=== PATIENT | male | born 1995 | race African-American/Black ===

== ENCOUNTER 2020-01-20 18:43 | Emergency (ER) | payer SELFPAY ==
[2020-01-20] MEDS ORDERED: FAMOTIDINE 20 MG/2 ML VIAL IV ONE (19:09)
[2020-01-20] MEDS ORDERED: NA CHLORIDE 0.9% 1,000 ML ONE (19:09)
[2020-01-20] MEDS ORDERED: ONDANSETRON 4 MG/2 ML VIAL ONE (19:09)
[2020-01-20 19:19] LABS: Absolute Lymphocytes (CBC) 3.8 K/uL (0.7-4.9); Basophils % 0.6 % (0-1.3); Hematocrit 39.9 % (39.6-49.0); Lymphocytes % 43.6 % (15.3-44.8); MPV 8.1 fL (7.6-11.3)
[2020-01-20 19:20] LABS: BUN Blood Urea Nitrogen 9 mg/dL (7-18); Bicarbonate 33 mmol/L (21-32); Glucose Level 106 mg/dL (74-106); Potassium 3.3 mmol/L (3.5-5.1); Sodium Level 140 mmol/L (136-145)
[2020-01-20] MEDS ORDERED: MAGNE/ALUM HYDROXD 30 ML UCUP ONE (19:31)
[2020-01-20] MEDS ORDERED: LIDOCAINE VISCOUS 2% SOLN 15 ML UDC ONE (19:31)
[2020-01-20] MEDS ORDERED: GLUCAGON 1 MG/VIAL ONE (19:31)
--- NOTE | 2020-01-20 19:58 | RAD REPORT ---
EXAM DESCRIPTION: RAD - Neck Soft Tissue - 01/20/2020 7:36 pm CLINICAL HISTORY: FORIEGN BODY COMPARISON: None. TECHNIQUE: Single lateral soft tissue neck exam performed. FINDINGS: No prevertebral soft tissue thickening. No foreign body or abnormal air density. Epiglotti s is normal. Adenoid tissue is prominent. No disk or bony abnormality. IMPRESSION: No foreign body identified. No suspicious finding noted.
[2020-01-20] MEDS ORDERED: POTASSIUM 25 MEQ EFFERV TAB ONE (20:20)
--- NOTE | 2020-01-20 20:35 | EDPHYS ---
Physician Documentation [facility] Name: Maninder Copeland Age: 24 yrs Sex: Male : 1995 Arrival Date: 01/20/2020 Time: 18:45 Bed 19 Private MD: ED Physician Dakota Montgomery HPI: 01/19 19:00 This 24 yrs old Black Male presents to ER via EMS with complaints of Swallowed Foreign cp Body. 19:00 The patient or guardian reports the patient has a suspected foreign body, of the cp throat. The reported likely foreign body is piece of meat. Onset: The symptoms/episode began/occurred just prior to arrival. Current symptoms: foreign body sensation, nausea, vomiting. Treatment Prior to Arrival: the patient induced vomiting. Patient reports he was eating a cheeseburger when he started feeling like piece was caught in throat. Patient reports he did vomit and observed piece of meat in vomitus, but he continues to have sensation of foreign body in throat, nausea and difficulty swallowing. Historical: - Allergies: 18:49 Iodine; jl7 18:49 SHELLFISH; jl7 - Home Meds: 18:49 None [Active]; jl7 - PMHx: 18:49 None; jl7 - PSHx: 18:49 None; jl7 - Immunization history:: Adult Immunizations unknown. - Social history:: Smoking status: Patient denies any tobacco usage or history of. ROS: 19:05 Constitutional: Negative for body aches, chills, fever, poor PO intake. cp 19:05 Eyes: Negative for injury, pain, redness, and discharge. cp 19:05 ENT: Positive for difficulty swallowing, foreign body sensation. 19:05 Cardiovascular: Negative for chest pain, palpitations. 19:05 Respiratory: Negative for cough, shortness of breath, wheezing. 19:05 Abdomen/GI: Positive for nausea, vomiting, Negative for abdominal pain, diarrhea, constipation. 19:05 Neuro: Negative for altered mental status, dizziness, loss of consciousness, syncope, weakness. 19:05 All other systems are negative. Exam: 19:10 Constitutional: The patient appears in no acute distress, alert, awake, cp non-diaphoretic, non-toxic, well developed, well nourished. 19:10 Head/Face: Normocephalic, atraumatic. cp 19:10 Eyes: Periorbital structures: appear normal, Conjunctiva: normal, no exudate, no injection, Lids and lashes: appear normal, bilaterally. 19:10 ENT: External ear(s): are unremarkable, Nose: is normal, Mouth: Lips: moist, Oral mucosa: moist, Posterior pharynx: Airway: no evidence of obstruction, patent. 19:10 Neck: ROM/movement: is normal, is supple, without pain, no range of motions limitations. 19:10 Chest/axilla: Inspection: normal, Palpation: is normal, no crepitus, no tenderness. 19:10 Cardiovascular: Rate: tachycardic, Rhythm: regular, JVD: is not appreciated. 19:10 Respiratory: the patient does not display signs of respiratory distress, Respirations: normal, no use of accessory muscles, labored breathing, is not present, Breath sounds: are clear throughout, no decreased breath sounds, no stridor, no wheezing. 19:10 Abdomen/GI: Inspection: abdomen appears normal, Palpation: abdomen is soft and non-tender, in all quadrants. 19:10 Neuro: Orientation: to person, place \T\ time. Mentation: is normal. Vital Signs: 18:35 BP 138 / 77; Pulse 108; Resp 19 S; Temp 98.2(O); Pulse Ox 100% on R/A; Weight 90.72 kg; jl7 Height 5 ft. 10 in. (177.80 cm); Pain 0/10; 20:30 BP 122 / 60; Pulse 89; Resp 18; Pulse Ox 100% on R/A; mg2 18:35 Body Mass Index 28.70 (90.72 kg, 177.80 cm) jl7 MDM: 18:51 Patient medically screened. cp 20:33 Data reviewed: vital signs, nurses notes, lab test result(s), radiologic studies, plain cp films. 20:33 Response to treatment: the patient's symptoms have markedly improved after treatment, cp Patient reports foreign body sensation improved and throat feels more irritated. Patient observed tolerating po fluids. VSS and no signs of respiratory distress observed. Will discharge to home for continued monitoring. 01/19 18:51 Order name: CBC with Diff cp 01/19 18:51 Order name: BMP cp 01/19 18:51 Order name: XRAY Neck Soft Tissue: AP and Lateral; Complete Time: 20:00 cp 01/19 20:12 Interpretation: Report reviewed. 01/19 18:52 Order name: CBC with Automated Diff; Complete Time: 19:48 EDMS 01/19 19:48 Interpretation: Normal except: HGB 13.2; MCV 78.1; MCH 25.9. 01/19 18:52 Order name: Basic Metabolic Panel; Complete Time: 19:48 EDMS 01/19 18:51 Order name: IV; Complete Time: 18:54 cp Administered Medications: 18:45 Drug: Glucagon 1 mg Route: IVP; Site: right antecubital; jl7 19:20 Follow up: Response: No adverse reaction; No change in condition ca1 18:55 Drug: Zofran (Ondansetron) 4 mg Route: IVP; Site: right antecubital; jl7 19:20 Follow up: Response: No adverse reaction; Nausea is decreased ca1 18:55 Drug: NS 0.9% 1000 ml Route: IV; Rate: 1 bolus; Site: right antecubital; jl7 18:58 Drug: Pepcid 20 mg Route: IVP; Site: right antecubital; jl7 19:39 Follow up: Response: No adverse reaction ca1 19:25 Drug: GI Cocktail without - (Maalox Suspension 30 ml, Lidocaine Liquid 2 % 15 ca1 ml) Route: PO; 20:57 Follow up: Response: No adverse reaction mg2 19:27 Drug: Glucagon 1 mg Route: IVP; Site: right antecubital; ca1 20:57 Follow up: Response: No adverse reaction mg2 19:37 Not Given (Duplicate Order): Glucagon 1 mg IVP once ca1 20:14 Drug: Potassium Effervescent Tablet 25 mEq Route: PO; mg2 20:57 Follow up: Response: No adverse reaction mg2 Disposition: 01/20/20 20:34 Discharged to Home. Impression: Other specified symptoms and signs involving the digestive system and abdomen - swallowed foreign body sensation. - Condition is Stable. - Discharge Instructions: Swallowed Foreign Body, Adult. - Prescriptions for Protonix 40 mg Oral Tablet, Delayed Release (E.C.) - take 1 tablet by ORAL route once daily for 8-10 days; 10 tablet. Zofran 4 mg Oral Tablet - take 1 tablet by ORAL route every 12 hours As needed; 20 tablet. - Medication Reconciliation Form, Thank You Letter, Antibiotic Education, Prescription Opioid Use form. - Follow up: Nishant Rivers MD; When: Tomorrow; Reason: Worsening of condition. - Problem is new. - Symptoms have improved. Addendum: 01/24/2020 07:00 Co-signature as Attending Physician, Dakota Montgomery MD. r n Signatures: Dispatcher [employer] EDMS Dakota Montgomery MD MD rn Vito Ge, PA PA cp Meme Duffy RN RN jl7 Phil Neumann RN RN mg2 Lary Maldonado RN RN ca1 Corrections: (The following items were deleted from the chart) 01/19 20:58 20:34 01/20/2020 20:34 Discharged to Home. Impression: Other specified symptoms and mg2 signs involving the digestive system and abdomen - swallowed foreign body sensation. Condition is Stable. Forms are Medication Reconciliation Form, Thank You Letter, Antibiotic Education, Prescription Opioid Use. Follow up: Nishant Rivers; When: Tomorrow; Reason: Worsening of condition. Problem is new. Symptoms have improved. cp 23:43 23:40 This 24 yrs old Black Male presents to ER via EMS with complaints of Swallowed cp Foreign Body. cp
--- NOTE | 2020-01-20 20:35 | ER ---
Nurse's Notes [facility] Name: Maninder Copeland Age: 24 yrs Sex: Male : 1995 Arrival Date: 01/20/2020 Time: 18:45 Bed 19 Private MD: Diagnosis: Other specified symptoms and signs involving the digestive system and abdomen-swallowed foreign body sensation Presentation: 01/19 18:35 Chief complaint: EMS states: Eating a cheeseburger 15 minutes ago and reports food jl7 stuck in his throat. Denies difficulty breathing. Coronavirus screen: Client denies travel out of the [place] in the last 14 days. At this time, the client does not indicate any symptoms associated with coronavirus-19. Ebola Screen: No symptoms or risks identified at this time. Initial Sepsis Screen: Does the patient meet any 2 criteria? No. Patient's initial sepsis screen is negative. Does the patient have a suspected source of infection? No. Patient's initial sepsis screen is negative. Risk Assessment: Do you want to hurt yourself or someone else? Patient reports no desire to harm self or others. Onset of symptoms was January 20, 2020. Care prior to arrival: None. Transition of care: patient was not received from another setting of care. 18:35 Method Of Arrival: EMS: [facility] 18:35 Acuity: GRAZYNA 3 jl7 Triage Assessment: 18:49 General: Appears in no apparent distress. uncomfortable, Behavior is cooperative, jl7 appropriate for age, anxious. Pain: Denies pain. Neuro: Level of Consciousness is awake, alert, obeys commands, Oriented to person, place, time, situation. Cardiovascular: Patient's skin is warm and dry. Respiratory: Airway is patent Respiratory effort is even, unlabored, Respiratory pattern is regular, symmetrical. Derm: Skin is pink, warm \T\ dry. Historical: - Allergies: 18:49 Iodine; jl7 18:49 SHELLFISH; jl7 - Home Meds: 18:49 None [Active]; jl7 - PMHx: 18:49 None; jl7 - PSHx: 18:49 None; jl7 - Immunization history:: Adult Immunizations unknown. - Social history:: Smoking status: Patient denies any tobacco usage or history of. Screenin:49 Abuse screen: Denies threats or abuse. Denies injuries from another. Nutritional jl7 screening: No deficits noted. Tuberculosis screening: No symptoms or risk factors identified. Fall Risk IV access (20 points). Total Contreras Fall Scale indicates No Risk (0-24 pts). Assessment: 18:49 General: See triage . jl7 20:57 Reassessment: Patient appears in no apparent distress at this time. Patient states mg2 feeling better. Patient states symptoms have improved. Vital Signs: 18:35 BP 138 / 77; Pulse 108; Resp 19 S; Temp 98.2(O); Pulse Ox 100% on R/A; Weight 90.72 kg; jl7 Height 5 ft. 10 in. (177.80 cm); Pain 0/10; 20:30 BP 122 / 60; Pulse 89; Resp 18; Pulse Ox 100% on R/A; mg2 18:35 Body Mass Index 28.70 (90.72 kg, 177.80 cm) jl7 ED Course: 18:45 Patient arrived in ED. ca1 18:45 Meme Duffy, LANDON is Primary Nurse. jl7 18:48 Triage completed. jl7 18:49 Vito Ge PA is PHCP. cp 18:49 Dakota Montgomery MD is Attending Physician. cp 18:49 Arm band placed on right wrist. jl7 18:49 Patient has correct armband on for positive identification. Bed in low position. Call [facility] light in reach. Side rails up X 1. Pulse ox on. NIBP on. 18:49 Inserted saline lock: 20 gauge in right antecubital area, using aseptic technique. jl7 Blood collected. 19:01 Initial lab(s) drawn, by az, sent to lab. jl7 19:37 XRAY Neck Soft Tissue: AP and Lateral In Process Unspecified. EDMS 20:30 Nishant Rivers MD is Referral Physician. cp 20:57 No provider procedures requiring assistance completed. IV discontinued, intact, mg2 bleeding controlled, No redness/swelling at site. Pressure dressing applied. Administered Medications: 18:45 Drug: Glucagon 1 mg Route: IVP; Site: right antecubital; jl7 19:20 Follow up: Response: No adverse reaction; No change in condition ca1 18:55 Drug: Zofran (Ondansetron) 4 mg Route: IVP; Site: right antecubital; jl7 19:20 Follow up: Response: No adverse reaction; Nausea is decreased ca1 18:55 Drug: NS 0.9% 1000 ml Route: IV; Rate: 1 bolus; Site: right antecubital; jl7 18:58 Drug: Pepcid 20 mg Route: IVP; Site: right antecubital; jl7 19:39 Follow up: Response: No adverse reaction ca1 19:25 Drug: GI Cocktail without - (Maalox Suspension 30 ml, Lidocaine Liquid 2 % 15 ca1 ml) Route: PO; 20:57 Follow up: Response: No adverse reaction mg2 19:27 Drug: Glucagon 1 mg Route: IVP; Site: right antecubital; ca1 20:57 Follow up: Response: No adverse reaction mg2 19:37 Not Given (Duplicate Order): Glucagon 1 mg IVP once ca1 20:14 Drug: Potassium Effervescent Tablet 25 mEq Route: PO; mg2 20:57 Follow up: Response: No adverse reaction mg2 Outcome: 20:34 Discharge ordered by . ayo 20:57 Discharged to home ambulatory. mg2 20:57 Condition: stable 20:57 Discharge instructions given to patient, Instructed on discharge instructions, follow up and referral plans. medication usage, Demonstrated understanding of instructions, follow-up care, medications, Prescriptions given X 2. 20:58 Patient left the ED. mg2 Signatures: Dispatcher [employer] EDMS Vito Ge PA PA cp Leal, Jahala RN RN jl7 Phil Neumann RN RN mg2 Lary Maldonado RN RN ca1
[2020-01-20 21:37] VITALS: BP 122/60; O2SAT 100
== END 2020-01-20 20:58 | disposition home or self-care (01) ==
LOC: ER 18:43
DX: R19.8 Other specified symptoms and signs involving the digestive system and abdomen (principal); Z91.013 Allergy to seafood; Z91.048 Other nonmedicinal substance allergy status
CPT/HCPCS: 36415; 70360; 80048; 85025; 96374; 96375; 99284; J1610; J2405; J7030

== ENCOUNTER 2022-12-28 06:00 | Emergency (ER) | payer SELFPAY ==
--- OUTSIDE RECORDS SUMMARY | 2022-12-28 06:03 | XMS REPORT | Continuity of Care Document ---
:1995 Author Organization [facility] t Address [address] [place] [address] Care Team Providers Name Role Phone LISSA Attending Clinician Unavailable LISSA Admitting Clinician Unavailable Problems This patient has no known problems. Allergies, Adverse Reactions, Alerts This patient has no known allergies or adverse reactions. Medications This patient has no known medications. Procedures This patient has no known procedures. Encounters Start End Encounter Admission Attending Care Care Encounter Source Date/Time Date/Time Type Type Clinicians Facility Department ID 2021-11-08 2021-11-08 Outpatient [facility] [phone] [place] 00:00:00 00:00:00 [facility] Program Results This patient has no known results.
--- NOTE | 2022-12-28 07:01 | ER ---
Nurse's Notes [facility] Name: Maninder Copeland Age: 27 yrs Sex: Male : 1995 Arrival Date: 12/28/2022 Time: 06:00 Bed 13 Private MD: Diagnosis: Acute pharyngitis, unspecified;Acute tonsillitis, unspecified Presentation: 12/28 06:30 Chief complaint: Patient states: sore throat that started yesterday morning. as6 Coronavirus screen: At this time, the client does not indicate any symptoms associated with coronavirus-19. Ebola Screen: No symptoms or risks identified at this time. Initial Sepsis Screen: Does the patient meet any 2 criteria? No. Patient's initial sepsis screen is negative. Does the patient have a suspected source of infection? No. Patient's initial sepsis screen is negative. Risk Assessment: Do you want to hurt yourself or someone else? Patient reports no desire to harm self or others. Onset of symptoms was December 27, 2022 at 09:00. 06:30 Acuity: GRAZYNA 4 as6 06:30 Method Of Arrival: EMS: [facility] as6 Triage Assessment: 06:28 General: Appears in no apparent distress. Behavior is calm, cooperative. Pain: as6 Complains of pain in throat. EENT: Reports pain when swallowing. Neuro: No deficits noted. Cardiovascular: Denies chest pain, Capillary refill < 3 seconds Patient's skin is warm and dry. Respiratory: Respiratory effort is even, unlabored, Respiratory pattern is regular, symmetrical. GI: No deficits noted. No signs and/or symptoms were reported involving the gastrointestinal system. : No deficits noted. No signs and/or symptoms were reported regarding the genitourinary system. Derm: Skin is intact, is healthy with good turgor. Musculoskeletal: Circulation, motion, and sensation intact. Historical: - Allergies: 06:30 Iodine; as6 06:30 SHELLFISH; as6 - Home Meds: 06:30 None [Active]; as6 - PMHx: 06:30 None; as6 - PSHx: 06:30 None; as6 - Immunization history:: Client reports having NOT received the Covid vaccine. - Social history:: Smoking status: Patient denies any tobacco usage or history of. Screenin:32 [facility] ED Fall Risk Assessment (Adult) Score/Fall Risk Level 0 - 2 = Low Risk. Abuse as6 screen: Denies threats or abuse. Denies injuries from another. Nutritional screening: No deficits noted. Tuberculosis screening: No symptoms or risk factors identified. Assessment: 07:22 Reassessment: Patient and/or family updated on plan of care and expected duration. Pain mb9 level reassessed. Patient is alert, oriented x 3, equal unlabored respirations, skin warm/dry/pink. Patient states feeling better. Patient states symptoms have improved. Vital Signs: 06:28 BP 129 / 91; Pulse 71; Resp 18 S; Temp 98.2(TE); Pulse Ox 100% on R/A; Weight 99.34 kg as6 (R); Height 5 ft. 11 in. (R); Pain 10/10; 06:28 Body Mass Index 30.54 (99.34 kg, 180.34 cm) as6 06:28 Pain Scale: Adult as6 ED Course: 06:05 Patient arrived in ED. 06:10 Vito Ramos MD is Attending Physician. 06:28 COVID-19 SARS RT PCR Sent. 06:28 Strep Sent. as6 06:28 Arm band placed on. as6 06:32 Triage completed. as6 06:32 Bed in low position. Call light in reach. as6 07:23 Patient did not have IV access during this emergency room visit. mb9 Administered Medications: 07:15 Drug: penicillin G Benzathine IM 1.8 million units IM once Route: IM; Site: right jb4 gluteus; 07:20 Follow up: Response: No adverse reaction mb9 07:20 Drug: Rocephin (cefTRIAXone) IM 1 grams IM once Route: IM; Site: left gluteus; mb9 07:20 Follow up: Response: No adverse reaction mb9 Medication: 06:32 VIS not applicable for this client. as6 Outcome: 07:00 Discharge ordered by . donavan 07:22 Discharged to home ambulatory, Amy 07:22 Condition: stable 07:22 Discharge instructions given to patient, Instructed on discharge instructions, follow up and referral plans. Demonstrated understanding of instructions, follow-up care, medications, Prescriptions given X 1, 07:23 Patient left the ED. mb9 Signatures: Vito Ramos MD MD cha Salyer, Edna es Bryson, James, RN RN jb4 Moody Leonardo, RN RN as6 Lorna Regan, RN RN mb9
--- NOTE | 2022-12-28 07:01 | EDPHYS ---
Physician Documentation [facility] Name: Maninder Copeland Age: 27 yrs Sex: Male : 1995 Arrival Date: 12/28/2022 Time: 06:00 Bed 13 Private MD: ED Physician Vito Ramos HPI: 12/28 06:52 This 27 yrs old Black Male presents to ER via EMS with complaints of Sore Throat. donavan 06:52 The patient presents with sore throat. The patient describes throat pain as constant, donavan raw. Onset: The symptoms/episode began/occurred 2 day(s) ago. Severity of symptoms: At their worst the symptoms were mild, moderate, in the emergency department the symptoms are unchanged. Modifying factors: The symptoms are alleviated by fluids, the symptoms are aggravated by swallowing. Associated signs and symptoms: The patient has no apparent associated signs or symptoms. The patient has not experienced similar symptoms in the past. Historical: - Allergies: 06:30 Iodine; as6 06:30 SHELLFISH; as6 - Home Meds: 06:30 None [Active]; as6 - PMHx: 06:30 None; as6 - PSHx: 06:30 None; as6 - Immunization history:: Client reports having NOT received the Covid vaccine. - Social history:: Smoking status: Patient denies any tobacco usage or history of. ROS: 06:53 Constitutional: Negative for fever, chills, and weight loss, Eyes: Negative for injury, donavan pain, redness, and discharge, Neck: Negative for injury, pain, and swelling, Cardiovascular: Negative for chest pain, palpitations, and edema, Respiratory: Negative for shortness of breath, cough, wheezing, and pleuritic chest pain, Abdomen/GI: Negative for abdominal pain, nausea, vomiting, diarrhea, and constipation, Back: Negative for injury and pain, : Negative for injury, bleeding, discharge, and swelling, MS/Extremity: Negative for injury and deformity, Skin: Negative for injury, rash, and discoloration, Neuro: Negative for headache, weakness, numbness, tingling, and seizure, Psych: Negative for depression, anxiety, suicide ideation, homicidal ideation, and hallucinations, Allergy/Immunology: Negative for hives, rash, and allergies, Endocrine: Negative for neck swelling, polydipsia, polyuria, polyphagia, and marked weight changes, Hematologic/Lymphatic: Negative for swollen nodes, abnormal bleeding, and unusual bruising, 06:53 ENT: Positive for sore throat, Exam: 06:53 Constitutional: This is a well developed, well nourished patient who is awake, alert, donavan and in no acute distress. Head/Face: Normocephalic, atraumatic. Eyes: Pupils equal round and reactive to light, extra-ocular motions intact. Lids and lashes normal. Conjunctiva and sclera are non-icteric and not injected. Cornea within normal limits. Periorbital areas with no swelling, redness, or edema. Neck: Trachea midline, no thyromegaly or masses palpated, and no cervical lymphadenopathy. Supple, full range of motion without nuchal rigidity, or vertebral point tenderness. No Meningismus. Chest/axilla: Normal chest wall appearance and motion. Nontender with no deformity. No lesions are appreciated. Cardiovascular: Regular rate and rhythm with a normal S1 and S2. No gallops, murmurs, or rubs. Normal PMI, no JVD. No pulse deficits. Respiratory: Lungs have equal breath sounds bilaterally, clear to auscultation and percussion. No rales, rhonchi or wheezes noted. No increased work of breathing, no retractions or nasal flaring. Abdomen/GI: Soft, non-tender, with normal bowel sounds. No distension or tympany. No guarding or rebound. No evidence of tenderness throughout. Back: No spinal tenderness. No costovertebral tenderness. Full range of motion. Male : Normal genitalia with no discharge or lesions. Skin: Warm, dry with normal turgor. Normal color with no rashes, no lesions, and no evidence of cellulitis. MS/ Extremity: Pulses equal, no cyanosis. Neurovascular intact. Full, normal range of motion. Neuro: Awake and alert, GCS 15, oriented to person, place, time, and situation. Cranial nerves II-XII grossly intact. Motor strength 5/5 in all extremities. Sensory grossly intact. Cerebellar exam normal. Normal gait. Psych: Awake, alert, with orientation to person, place and time. Behavior, mood, and affect are within normal limits. 06:53 ENT: Mouth: is normal, no acute changes, Lips: normal, Oral mucosa: normal, pink and intact, moist, Gums: normal with healthy appearance, Posterior pharynx: Tonsils: bilaterally enlarged, with erythema, Uvula: normal, midline, non-edematous, no erythema, Vital Signs: 06:28 BP 129 / 91; Pulse 71; Resp 18 S; Temp 98.2(TE); Pulse Ox 100% on R/A; Weight 99.34 kg as6 (R); Height 5 ft. 11 in. (R); Pain 10/; 06:28 Body Mass Index 30.54 (99.34 kg, 180.34 cm) as6 06:28 Pain Scale: Adult as6 MDM: 06:10 Patient medically screened. [facility] 06:56 Data reviewed: vital signs, nurses notes. Consideration of Admission/Observation donavan Escalation of care including admission/observation considered. I considered the following discharge prescriptions or medication management in the emergency department Medications were administered in the Emergency Department. See MAR. Test considered but Not performed: Labs: no cbc, no comp. Historians other than the Patient: pt well informed. Care significantly affected by the following chronic conditions: none. 12/28 06:11 Order name: COVID-19 SARS RT PCR [facility] 12/28 06:11 Order name: Strep [facility] 12/28 07:08 Order name: Throat Culture EDMS Administered Medications: 07:15 Drug: penicillin G Benzathine IM 1.8 million units IM once Route: IM; Site: right jb4 gluteus; 07:20 Follow up: Response: No adverse reaction mb9 07:20 Drug: Rocephin (cefTRIAXone) IM 1 grams IM once Route: IM; Site: left gluteus; mb9 07:20 Follow up: Response: No adverse reaction mb9 Disposition Summary: 12/28/22 07:00 Discharge Ordered Notes: Location: Home donavan Problem: new donavan Symptoms: have improved donavan Condition: Stable donavan Diagnosis - Acute pharyngitis, unspecified donavan - Acute tonsillitis, unspecified donavan Followup: donavan - With: Private Physician - When: 2 - 3 days - Reason: Recheck today's complaints, Continuance of care, Re-evaluation by your physician Discharge Instructions: - Discharge Summary Sheet donavan - Pharyngitis donavan - Sore Throat donavan - Strep Throat, Adult donavan - Tonsillitis donavan - Tonsillitis, [id number] donavan - Sore Throat, [id number] donavan Forms: - Medication Reconciliation Form [facility] - Thank You Letter donavan - Antibiotic Education donavan - Prescription Opioid Use donavan - Patient Portal Instructions donavan - Leadership Thank You Letter donavan Prescriptions: - Medrol (Rosendo) 4 mg Oral Tablets, Dose Pack - take 1 tablet ORAL route as directed - follow package instructions; 1 packet; [facility] Refills: 0, Product Selection Permitted Signatures: Dispatcher [employer] Vito Burton MD MD cha Bryson, James, RN RN jb4 Moody Leonardo RN RN as6 Lorna Regan RN RN mb9
[2022-12-28] MEDS ORDERED: PEN G BENZ LA 2.4 MU/4 ML SYRINGE IM ONE (07:10)
[2022-12-28] MEDS ORDERED: CEFTRIAXONE 1000 MG/VIAL ONE (07:24)
[2022-12-28] MEDS ORDERED: LIDOCAINE 1% MPF 2 ML AMPULE ONE (07:24)
[2022-12-28 07:28] VITALS: BP 129/91; TEMP 98.2; O2SAT 100
== END 2022-12-28 07:23 | disposition home or self-care (01) ==
LOC: ER 06:00
DX: J03.90 Acute tonsillitis, unspecified (principal)
CPT/HCPCS: 87070; 87081; 87635; 96372; 99284; J0561; J0696